=== PATIENT | female | born 1965 | race Caucasian/White ===

== ENCOUNTER 2017-05-23 14:17 | Emergency (ER) | payer BC ==
[2017-05-23] MEDS ORDERED: CITALOPRAM40 MG PO (14:29)
[2017-05-23] MEDS ORDERED: MYRBETRIQ25 MG PO (14:29)
[2017-05-23] MEDS ORDERED: IMITREX5 M1 NS (14:30)
[2017-05-23] MEDS ORDERED: ADVIL 200MG TA200 MG PO (14:30)
[2017-05-23] MEDS ORDERED: CYCLOBENZAPRINE10 M1 PO (14:31)
[2017-05-23] MEDS ORDERED: ACETAMINOPHEN-H1 TA2 PO (14:31)
[2017-05-23 16:32] VITALS: BP 113/62
== END 2017-05-23 16:38 | disposition home or self-care (01) ==
LOC: ED 14:17
DX: R51 Headache (principal); R11.2 Nausea with vomiting, unspecified; G43.909 Migraine, unspecified, not intractable, without status migrainosus
CPT/HCPCS: J1885; J2765; J7030

== ENCOUNTER → 2022-06-18 | Outpatient (CLI) | payer BC ==
[~2022-06-18] MED LIST: ACETAMINOPHEN-H1 TA2 PO; ADVIL 200MG TA200 MG PO; CITALOPRAM40 MG PO; CYCLOBENZAPRINE10 M1 PO; IMITREX5 M1 NS; MYRBETRIQ25 MG PO
== END ==
LOC: RAD 07:30
DX: M25.511 Pain in right shoulder (principal)